=== PATIENT | female | born 1950 | race Caucasian/White ===

== ENCOUNTER 2016-12-08 19:21 | Emergency (ER) | payer OTHER, BC ==
[~2016-12-08] VITALS: Ht 167.6 cm; Wt 77.2 kg
[2016-12-08 19:29] VITALS: TEMP 36.7; Ht 167.6 cm; Wt 77.2 kg
[2016-12-08] MEDS ORDERED: SODIUM CHLORIDE 0.9% 500ML 500 ML IV STA (19:41)
[2016-12-08] MEDS ORDERED: MAGNESIUM SULFATE 1GM / D5W 1 GM BAG IV STA (19:41)
[2016-12-08] MEDS ORDERED: DiphenhydrAMINE HCL 50 MG/ML VIAL IV STA (19:41)
[2016-12-08] MEDS ORDERED: KETOROLAC TROMETHAMINE 30 MG/ML VIAL IV STA (19:41)
[2016-12-08] MEDS ORDERED: PROCHLORPERAZINE 5 MG/ML 2 ML VIAL IV STA (19:41)
--- NOTE | 2016-12-08 19:42 | EMERGENCY ROOM VISIT NOTE ---
History Report prepared by Brenna: Tiny Dang Under the Supervision of: Dr. Ben Villalpando M.D. First contact with patient: 19:34 Chief Complaint: HEADACHE Stated Complaint: SEVERE MIGRAINE History of Present Illness The patient is a 66 year old female who presents to the Emergency Room with complaints of a constant headache beginning 2 days ago. The patient states that she has a history of migraines and this feels like a usual migraine for her. She reports that she uses Fioricet when she feels a migraine coming but today it did not relieve her symptoms. She notes that she has not had a migraine like this in a few years and this migraine has been progressively worsening and she has not had any relief. The patient complains of neck pain that is not new. Source of History: patient Onset: 2 days ago Position: head Quality: ache Timing: constant Modifying Factors (Relieving): other (none) Associated Symptoms: + neck pain Review of Systems See HPI for pertinent positives & negatives. A total of 10 systems reviewed and were otherwise negative. Past Medical & Surgical Medical Problems: (1) Migraines Family History No pertinent family history stated. Social History Smoking Status: Never Smoker Marital Status: Housing Status: lives with significant other Current/Historical Medications Scheduled Celecoxib (CeleBREX), 200 MG PO QPM Duloxetine HCl (Cymbalta), 30 MG PO DAILY Rizatriptan Benzoate (Maxalt), 10 MG PO PRN/UD Ropinirole (Requip), 1-1.5 MG PO HS Scheduled PRN Acetamin/Butalbital/Caffeine (Fioricet), 1 TAB PO BID PRN for Migraine Physical Exam Vital Signs Date Time Temp Pulse Resp B/P (MAP) Pulse Ox O2 Delivery O2 Flow Rate FiO2 12/08/16 21:13 70 18 138/64 95 Room Air 12/08/16 19:29 36.7 78 18 150/82 100 Room Air Physical Exam GENERAL: Patient is a healthy-appearing well-nourished female HEAD: Normocephalic atraumatic EYES: Ocular movements intact pupils equal and react to light OROPHARYNX mucous membranes are moist no exudates present no erythema or edema present NECK: Supple no nuchal rigidity CHEST: Good equal expansion LUNGS: Clear and equal to auscultation CARDIAC: Normal S1 and S2 ABDOMEN: Soft nontender no guarding BACK: No CVA tenderness EXTREMITIES: No pain upon palpation normal muscle strength in all groups no clubbing cyanosis or edema NEURO: Patient is following commands and answering questions appropriately. Alert and oriented x3 Cranial Nerves 2-12 grossly intact. No evidence of meningitis or encephalitis on exam. Medical Decision & Procedures Medications Administered Medications (Trade) Dose Ordered Sig/Jerry Route Start Time Stop Time Status Last Admin Dose Admin Sodium Chloride 500 ml @ 999 mls/hr Q31M STAT IV 12/08/16 19:41 12/08/16 20:11 DC 12/08/16 20:03 999 MLS/HR Diphenhydramine HCl (Benadryl Inj) 50 mg NOW STAT IV 12/08/16 19:41 12/08/16 19:42 DC 12/08/16 20:04 50 MG Prochlorperazine Edisylate (Compazine Inj) 5 mg NOW STAT IV 12/08/16 19:41 12/08/16 19:42 DC 12/08/16 20:03 5 MG Ketorolac Tromethamine (Toradol Inj) 30 mg NOW STAT IV 12/08/16 19:41 12/08/16 19:42 DC 12/08/16 20:04 30 MG Magnesium Sulfate (Magnesium Sulfate) 1 gm NOW STAT IV 12/08/16 19:41 12/08/16 19:42 DC 12/08/16 20:03 1 GM Lorazepam (Ativan Inj) 0.5 mg NOW STAT IV 12/08/16 20:25 12/08/16 20:26 DC 12/08/16 21:02 0.5 MG Dexamethasone Sodium Phosphate (Decadron Inj) 10 mg NOW STAT IV 12/08/16 20:59 12/08/16 21:00 DC 12/08/16 21:06 10 MG ED Course 1933: Past medical records reviewed. The patient was evaluated in room C4. A complete history and physical examination was performed. 1940: Magnesium Sulfate 1gm IV, Toradol Inj 30mg IV, Compazine Inj 5mg IV, Benadryl Inj 50mg IV, Sodium Chloride 500 ml @ 999 mls/hr IV. 2020: I reevaluated and updated the patient. 2024: Ativan Inj 0.5mg IV. 2058: Decadron Inj 10mg IV. 2108: Upon reexamination the patient is doing well. I discussed results and treatment plan with the patient. She verbalizes agreement and understanding. The patient is ready for discharge. Medical Decision Differential diagnosis: Etiologies such as migraine headache, meningitis, sinusitis, CO exposure, ICH, SAH, infection, tumor, headache, sinus thrombosis, arterial dissection, as well as others were entertained. This is a 66-year-old female who presents emergency department complaining of migraine. The patient reports she has had migraines like this previously. In addition she is had imaging of her head in the past. An IV was established, the patient given normal saline bolus, Toradol, Compazine, Benadryl, magnesium. Repeat examination revealed much improvement the patient's symptoms. The patient was also given an additional dose of Ativan for her restless legs and was also given Decadron. She is going to follow-up with her primary care physician. Patient and were in agreement with the treatment plan. Medication Reconcilliation Current Medication List: was personally reviewed by me Blood Pressure Screening Patient's blood pressure: Elevated blood pressure Blood pressure disposition: Elevated BP felt to be situational Impression Primary Impression: Migraine Scribe Attestation The scribe's documentation has been prepared under my direction and personally reviewed by me in its entirety. I confirm that the note above accurately reflects all work, treatment, procedures, and medical decision making performed by me. Departure Information Dispostion Home / Self-Care Forms HOME CARE DOCUMENTATION FORM, IMPORTANT VISIT INFORMATION Patient Instructions ED Headache Migraine, My [facility] Additional Instructions You were found to have an elevated blood pressure today (>120 sytolic or >90 diastolic). Per medicare guidelines, you need to follow up with this blood pressure screening with your Primary Care Physician (PCP). For a new PCP call [phone]. You received narcotic or benzodiazepene medication while in the emergency room today. This is an addictive medication that may cause drowziness as well as constipation. Do not drive, operate heavy machinery, or drink alcohol under the influence of this medication. You have been examined and treated today on an emergency basis only. This is not a substitute for, or an effort to provide, complete comprehensive medical care. It is impossible to recognize and treat all injuries or illnesses in a single emergency department visit. It is therefore important that you follow up closely with your PCP. Call as soon as possible for an appointment. Thank you for your time and consideration. I look forward to speaking with you again soon. Please don't hesitate to call us if you have any questions. Problem Qualifiers Primary Impression: Migraine Migraine type: unspecified Status migrainosus presence: without status migrainosus Intractability: not intractable Qualified Codes: G43.909 - Migraine, unspecified, not intractable, without status migrainosus
[2016-12-08] MEDS ORDERED: RIZA10TA18 PO (20:20)
[2016-12-08] MEDS ORDERED: FRCT/ PO (20:21)
[2016-12-08] MEDS ORDERED: ROPI1TAB PO (20:23)
[2016-12-08] MEDS ORDERED: CYM/30 PO (20:24)
[2016-12-08] MEDS ORDERED: LORAZEPAM 2 MG/ML 1 ML VIAL IV STA (20:25)
[2016-12-08] MEDS ORDERED: CLB/200 PO (20:25)
[2016-12-08] MEDS ORDERED: DEXAMETHASONE SOD INJ 10 MG/ML VIAL IV STA (20:59)
[2016-12-08 21:13] VITALS: BP 138/64; PULSE 70; O2SAT 95
== END 2016-12-08 21:30 | disposition home or self-care (01) ==
LOC: C.EDB 19:23 → C.EDC 21:30
DX: G43.909 Migraine, unspecified, not intractable, without status migrainosus (principal); Z79.899 Other long term (current) drug therapy; G25.81 Restless legs syndrome